=== PATIENT | female | born 1985 | race Hispanic/Latino ===

== ENCOUNTER 2024-02-17 13:23 | Observation (INO) | payer BC, MEDICAID ==
[~2024-02-17] VITALS: Ht 165.1 cm; Wt 105.2 kg
[2024-02-17] MEDS: 0.9%NACL 1000ML 1,000 ML IV ONE (13:42)
[2024-02-17] MEDS: ondanSETRON 4MG INJ IVP ONE (13:42)
[2024-02-17] MEDS: acetaMINOPHEN 325 MG TAB PO ONE (13:43)
[2024-02-17 14:05] LABS: BASOPHILS # (AUTO) 0.13 K/uL (0.00-0.20); BASOPHILS % (AUTO) 0.9 % (0.0-5.0); EOSINOPHILS # (AUTO) 0.25 K/uL (0.00-0.70); EOSINOPHILS % (AUTO) 1.7 % (0.0-8.0); HEMATOCRIT 43.5 % (36-48); LYMPHOCYTES # (AUTO) 2.8 K/uL (1.0-4.8); LYMPHOCYTES % (AUTO) 18.8 % (21.0-51.0); MEAN CORPUSCULAR HEMOGLOBIN 28.6 pg (27.0-33.0); MEAN CORPUSCULAR HGB CONC 33.1 g/dL (32.0-36.0); MEAN CORPUSCULAR VOLUME 86.3 fL (79-99); MONOCYTES # (AUTO) 1.3 K/uL (0.1-1.0); MONOCYTES % (AUTO) 8.5 % (3.0-13.0); NEUTROPHILS # (AUTO) 10.3 K/uL (1.8-7.7); NEUTROPHILS % (AUTO) 69.4 % (40.0-77.0); PLATELET COUNT (AUTO) 384 K/uL (130-400); RED BLOOD CELL COUNT(AUTO) 5.04 MIL/uL (4.00-5.50); RED CELL DISTRIBUTION WIDTH 12.4 % (11.0-15.5); WHITE BLOOD COUNT (AUTO) 14.8 K/uL (4.8-10.8)
--- NOTE | 2024-02-17 14:12 | ERN ---
General Chief Complaint: Abdominal Pain Stated Complaint: ABD PAIN Time Seen by MD: 13:27 Source: patient, family History of Present Illness Initial Comments PATIENT IS A 38-YEAR-OLD FEMALE COMING IN TO BE EVALUATED FOR RIGHT FLANK PAIN. PER PATIENT THE PAIN BEGAN TWO DAYS AGO HAS PROGRESSIVELY GOTTEN WORSE. PATIENT QUANTIFIES THE PAIN AT 10/10 PRESENT ON THE RIGHT LOWER ABDOMINAL REGION AND RIGHT FLANK REGION. Allergies: Coded Allergies: Penicillins (Unverified Allergy, Unknown, 02/17/24) levofloxacin (Unverified Allergy, Unknown, 02/17/24) Past Medical History Past Medical History: Hypertension, IBS Past Surgical History: None ROS Dictation CONSTITUTIONAL: NO CHILLS, NO FEVER, NO WEAKNESS, NO DIAPHORESIS, NO MALAISE. HEAD/FACE: NO SIGNS OF TRAUMA. EENT: NO EYE PAIN, NO BLURRED VISION, NO TEARING, NO DOUBLE VISION, NO EAR PAIN, NO EAR DISCHARGE, NO NOSE PAIN, NO NASAL CONGESTION, NO THROAT PAIN, NO THROAT SWELLING, NO MOUTH PAIN. RESPIRATORY: NO COUGH, NO ORTHOPNEA, NO SOB, NO STRIDOR, NO WHEEZING. CARDIOVASCULAR: NO CHEST PAIN, NO EDEMA, NO PALPITATIONS, NO SYNCOPE. GASTROINTESTINAL/ABDOMINAL: ABDOMINAL PAIN, NO CONSTIPATION, NO DIARRHEA, NO NAUSEA, NO VOMITING. GENITOURINARY: NO ABNORMAL DISCHARGE, NO DYSURIA, NO FREQUENT URINATION, NO HEMATURIA. NO COMPLAINTS OF PAIN IN THE GENITALS. MUSCULOSKELETAL: NO BACK PAIN, NO GOUT, NO JOINT PAIN, NO JOINT SWELLING, NO MUSCLE PAIN, NO MUSCLE STIFFNESS, NO NECK PAIN. INTEGUMENTARY: NO CHANGE IN COLOR, NO CHANGE IN HAIR/NAILS, NO DRYNESS, NO LESION, NO LUMPS, NO RASH. NEUROLOGICAL/PSYCH: NO ANXIETY, NOT DEPRESSED, NO EMOTIONAL PROBLEM, NO HEADACHE, NO NUMBNESS, NO PRE-EXISTING DEFICIT, NO HISTORY OF SEIZURES, NO TREMORS, NO WEAKNESS. HEMATOLOGIC/LYMPHATIC: NOT ANEMIC, NO HISTORY OF BLOOD CLOTS, NO APPARENT BLEEDING, NO BRUISING, GLANDS NOT SWOLLEN. ALL SYSTEMS NEGATIVE, EXCEPT NOTED. Physical Exam Physical Exam Dictation VITAL SIGNS: REVIEWED. GENERAL APPEARANCE: ALERT, ORIENTED X3, NO ACUTE DISTRESS, OBESE. HEAD AND FACE: NON-TRAUMATIC. EYES: PERRL, PINK CONJUNCTIVAS, EYELID NO TRAUMA, ANTERIOR CHAMBER CLEAR. EARS: PINNAS INTACT AND NO SIGNS OF TRAUMA OR ERYTHEMA. EAR CANALS CLEAR AND NO DISCHARGE. TMS NO ERYTHEMA. NOSE: NO DISCHARGE, NO BLEEDING. OROPHARYNX: MOUTH NORMAL, TEETH NO CARIES, TONGUE PINK. PHARYNX CLEAR, NO ERYTHEMA. TONSILS NO EXUDATES, NO ABSCESSES NOTED. MUCOUS MEMBRANE MOIST. NECK: SUPPLE, NON-TENDER, NO THYROMEGALY, NO MASSES, NO JVD, NO BRUITS. BREAST: DEFERRED. CHEST: NO TENDERNESS, NO CREPITUS, NO PARADOXICAL MOVEMENT, NO RETRACTIONS. LUNGS: CLEAR, WELL-VENTILATED, SYMMETRIC, NO RALES, NO WHEEZING, NO RHONCHI, NO STRIDOR, GOOD BREATH SOUNDS BILATERALLY. HEART: REGULAR RATE, REGULAR RHYTHM, NO MURMUR, NO GALLOPS. VASCULAR: NO PERIPHERAL EDEMA. ABDOMEN: SOFT, POSITIVE BOWEL SOUNDS, NONDISTENDED, RIGHT LOWER QUADRANT PAIN REPRODUCIBLE ON PALPATION, RIGHT CVA ANGLE TENDERNESS RECTAL: DEFERRED. GENITAL: DEFERRED. NEUROLOGICAL: NORMAL SPEECH, GROSS MOTOR FUNCTION INTACT, GROSS SENSORY FUNCTION INTACT. MUSCULOSKELETAL: NECK NONTENDER, FULL RANGE OF MOTION, BACK NONTENDER, FULL RANGE OF MOTION. EXTREMITIES: NONTENDER, FULL RANGE OF MOTION. SKIN: COLOR PINK, DRY, NO TURGOR, NO RASH, NO LACERATIONS, NO ABRASIONS, NO CONTUSIONS. LYMPHATICS: DEFERRED. Results Laboratory and Microbiology Lab and Micro Result Laboratory Tests Test 02/17/24 13:53 02/17/24 13:58 02/17/24 15:15 White Blood Count 14.8 K/uL (4.8-10.8) H Red Blood Count 5.04 MIL/uL (4.00-5.50) Hemoglobin 14.4 g/dL (12.0-16.0) Hematocrit 43.5 % (36-48) Mean Corpuscular Volume 86.3 fL (79-99) Mean Corpuscular Hemoglobin 28.6 pg (27.0-33.0) Mean Corpuscular Hemoglobin Concent 33.1 g/dL (32.0-36.0) Red Cell Distribution Width 12.4 % (11.0-15.5) Platelet Count 384 K/uL (130-400) Mean Platelet Volume 9.5 fL (7.5-10.5) Immature Granulocyte % (Auto) 0.7 % (0-1) Neutrophils (%) (Auto) 69.4 % (40.0-77.0) Lymphocytes (%) (Auto) 18.8 % (21.0-51.0) L Monocytes (%) (Auto) 8.5 % (3.0-13.0) Eosinophils (%) (Auto) 1.7 % (0.0-8.0) Basophils (%) (Auto) 0.9 % (0.0-5.0) Neutrophils # (Auto) 10.3 K/uL (1.8-7.7) H Lymphocytes # (Auto) 2.8 K/uL (1.0-4.8) Monocytes # (Auto) 1.3 K/uL (0.1-1.0) H Eosinophils # (Auto) 0.25 K/uL (0.00-0.70) Basophils # (Auto) 0.13 K/uL (0.00-0.20) Absolute Immature Granulocyte (auto 0.10 K/uL (0-1) Nucleated Red Blood Cells 0.0 % (0.0-0.19) Sodium Level 138 mmol/L (136-145) Potassium Level 3.9 mmol/L (3.5-5.1) Chloride Level 102 mmol/L (101-111) Carbon Dioxide Level 29 mmol/L (21-32) Blood Urea Nitrogen 12 mg/dL (7-18) Creatinine 1.0 mg/dL (0.5-1.0) Glomerular Filtration Rate Calc 74 mL/min (>90) Random Glucose 122 mg/dL (70-105) H Total Calcium 8.9 mg/dL (8.5-10.1) Serum Test, Qualitative NEGATIVE (NEGATIVE) Urine Color LIGHT-YELLOW (YELLOW) Urine Appearance CLEAR (CLEAR) Urine pH 7.5 (5.0-8.0) Urine Specific [place] 1.015 (1.001-1.031) Urine Protein NEGATIVE mg/dL (NEGATIVE) Urine Glucose (UA) NEGATIVE mg/dL (NEGATIVE) Urine Ketones NEGATIVE mg/dL (NEGATIVE) Urine Occult Blood NEGATIVE (NEGATIVE) Urine Nitrate NEGATIVE (NEGATIVE) Urine Bilirubin NEGATIVE mg/dL (NEGATIVE) Urine Urobilinogen 0.2 mg/dL (0.2-1.0) Urine Leukocyte Esterase NEGATIVE Demi/uL Urine HCG, Qualitative NEGATIVE (NEGATIVE) MDM MDM: DIFFERENTIAL DIAGNOSIS: Right ovarian cyst, abdominal pain, RATIONALE: TESTS CONSIDERED AND ORDERED SECONDARY TO SHARED DECISION MAKING INCLUDE: PREVIOUS OUTSIDE RECORDS REVIEWED: OLD ER VISITS. RISK OF COMPLICATION AND/OR MORBIDITY OR MORTALITY OF PATIENT MANAGEMENT: NONE MEDICATIONS-PER MEDICATION RECONCILIATION NEED FOR HOSPITALIZATION: PATIENT DOES NOT MEET CRITERIA FOR HOSPITALIZATION. NEED FOR EMERGENCY MAJOR/MINOR SURGERY: NO THERE ARE NO SOCIAL CONCERNS WITH THIS PATIENT. PRESCRIPTION DRUG MANAGEMENT PRESCRIPTIONS WILL INCLUDE SYMPTOMATIC CARE PATIENT'S PRIOR EXTERNAL MEDICAL RECORDS FROM OTHER ER VISITS WERE REVIEWED BY ME INDICATED. PRIOR TESTING AND RESULTS FROM PREVIOUS VISITS WERE REVIEWED. PRIOR TESTS WERE TAKEN INTO ACCOUNT WITH MEDICAL DECISION MAKING AND RESOURCE UTILIZATION, INDEPENDENT HISTORIAN/HISTORIANS WERE USED TO OBTAIN COMPLETE MEDICAL HISTORY. I INDEPENDENTLY INTERPRETED THE TEST THAT WERE PERFORMED, RESULTS WERE REVIEWED BY ME AND CONSIDERED FINDINGS ON RADIOLOGY IF ORDERED. MEDICAL MANAGEMENT AND EXAMINATION INTERPRETATION DISCUSSIONS WERE HAD BY ME WITH OTHER QUALIFIED HEALTHCARE PROFESSIONALS INDICATED FOR THE PATIENT'S CARE. Patient is a 38-year-old female coming in to be evaluated for right flank pain. CT of the abdomen was performed large right ovarian cyst was found 9 cm. Ultrasound pending patient will be transitioned to Dr. Gonsales ED Course Orders Procedure Category Date Status Time Cbc With Differential LAB 02/17/24 Complete 13:36 ,Urine Test LAB 02/17/24 Complete 13:36 Urinalysis Profile LAB 02/17/24 Complete 13:36 0.9%Nacl 1000ml (Ns PHA 02/17/24 Complete 1000ml) 14:00 Acetaminophen 325 Tab PHA 02/17/24 Complete (Tylenol 325mg Tab 14:00 Ondansetron 4mg Inj PHA 02/17/24 Complete (Zofran 4mg Inj) 14:00 Basic Metabolic Panel LAB 02/17/24 Complete 13:36 Testing, LAB 02/17/24 Complete Serum Hcg 15:00 Ct Abdomen/Pelvis W/O CT 02/17/24 Resulted Contrast 16:03 Us Pelvic Non-Ob Comp US 02/17/24 Resulted 16:51 Morphine 2mg Syg PHA 02/17/24 In Process (Morphine 2mg Syg) 20:30 Current Medications Medications (Trade) Dose Ordered Sig/Siomara Route PRN Reason Start Time Stop Time Status Last Admin Dose Admin Acetaminophen (TYLenol 325MG TAB) 650 mg ONCE ONCE PO 02/17/24 14:00 02/17/24 14:01 DC 02/17/24 13:43 Morphine Sulfate (morPHINE 2MG SYG) 2 mg ONCE ONCE IVP 02/17/24 20:30 02/17/24 20:31 Ondansetron HCl (zoFRAN 4MG INJ) 4 mg ONCE ONCE IVP 02/17/24 14:00 02/17/24 14:01 DC 02/17/24 13:42 Sodium Chloride 1,000 ml @ 0 mls/hr ONCE ONCE IV 02/17/24 14:00 02/17/24 14:01 DC 02/17/24 13:42 Vital Signs Date Time Temp Pulse Resp B/P (MAP) Pulse Ox O2 Delivery O2 Flow Rate FiO2 02/17/24 19:43 99.0 75 18 117/80 97 Room Air* 0 21 02/17/24 17:36 98.4 70 18 122/71 98 Room Air* 0 21 02/17/24 16:07 98.4 70 18 142/85 98 Room Air* 0 21 02/17/24 13:40 98.4 69 18 149/89 97 Room Air* 0 21 02/17/24 13:27 98.4 69 18 159/96 98 7:00 p.m. patient was signed out to me by a.m. physician. This is a 38-year-old female obese presented to the emergency room with complaints of severe right lower quadrant abdominal pain. Extensive evaluation done and a CT scan of the abdomen and pelvis was done which showed a large cyst more than 9 cm appears to be originating from the ovary. Ultrasound of the pelvis was also done which showed the large cyst attached to the ovary but adjacent to it. I spoke personally with the soils technician who said that there is good flow to the ovary. 8:00 p.m. updated the patient on available information. I also called JERILYN Cross on-call who recommended admission and overnight pain management. And there was no mention about the flow to the cyst and ovary and I personally discussed with the soils technician who indicated that there was flow to the ovary. Labs reviewed patient does have a leukocytosis of 14.8. No evidence of any appendicitis or bowel abnormality on the CT scan. Called who accepted the patient for admission. Problem List Problem Lists: (1) Right ovarian cyst DX & DISP Disposition: Inpatient Decision to Admit Time: 07:20 Departure Impression: Primary Impression: Right ovarian cyst Additional Impressions: Leukocytosis, Right lower quadrant abdominal pain, Obesity Condition: Stable Additional Instructions: Patient was informed of all the diagnostic labs and procedures conducted in the emergency room today and demonstrated understanding of the results. I personally reviewed and interpreted all the diagnostic exams performed in the ER today. The patient will be admitted to the hospital for further treatment and evaluation. Disposition-admit to facility Condition-stable/guarded Course-uncertain at this time Pain status-decreased Assessment-exam unchanged Admission Certification- I certify that the patients status is appropriate and is based on my best clinical judgment and the patient's condition as documented in the medical records Referrals: SELF,REFERRAL (PCP) SEAN RICHARDS MD Feb 17, 2024 14:12 NICOLÁS GONSALES MD Feb 17, 2024 20:37
[2024-02-17 14:19] LABS: POTASSIUM 3.9 mmol/L (3.5-5.1)
[2024-02-17 15:39] LABS: APPEARANCE,URINE CLEAR (CLEAR); BILIRUBIN,URINE NEGATIVE (NEGATIVE); COLOR,URINE LIGHT-YELLOW (YELLOW); GLUCOSE, URINE (UA) NEGATIVE (NEGATIVE); KETONES,URINE NEGATIVE (NEGATIVE); LEUKOCYTE ESTERASE ,URINE NEGATIVE Leu/uL (NEGATIVE); NITRATE,URINE NEGATIVE (NEGATIVE); OCCULT BLOOD,URINE NEGATIVE (NEGATIVE); PH,URINE 7.5 (5.0-8.0); PROTEIN,URINE NEGATIVE (NEGATIVE); UROBILINOGEN,URINE 0.2 mg/dL (0.2-1.0)
[2024-02-17 15:40] LABS: ADD UA MICROSCOPIC NO
[2024-02-17 15:50] LABS: HCG,QUALITATIVE URINE NEGATIVE (NEGATIVE)
--- NOTE | 2024-02-17 16:44 | HMCIMG ---
CT ABDOMEN/PELVIS W/O CONTRAST CLINICAL HISTORY: RLQ PAIN COMPARISON: None TECHNIQUE: Sequential axial images of abdomen and pelvis without contrast and with sagittal and coronal reconstructions. CT was performed with one or more of the following dose reduction techniques: automated exposure control, adjustment of the mA and/or kV according to patient size, or use of iterative reconstruction technique FINDINGS: The lung bases are clear. There is diffuse fatty infiltration liver. The spleen is unremarkable and gallbladder is surgically absent. The pancreas adrenal glands and kidneys and bladder are unremarkable. Note is made of a 9 cm right ovarian cyst. The uterus is unremarkable. There is no free air or free fluid. There is no bulky abdominal or retroperitoneal lymphadenopathy. There is no identified bowel structure. The bony structures are within normal limits. IMPRESSION: 9 cm right ovarian cyst recommend ultrasound correlation.
--- NOTE | 2024-02-17 19:18 | HMCIMG ---
US PELVIC NON-OB COMP HISTORY: ovarian cyst right COMPARISON: None FINDINGS: The uterus measures 9.7 cm in length and there is a 9 mm endometrial thickness. The ovaries are unremarkable size echogenicity and vascularity. Note is made of a right adnexal 8.7 cm simple appearing cyst. IMPRESSION: Right adnexal 8.7 cm simple appearing cyst.
--- NOTE | 2024-02-17 20:15 | NUR ---
PATIENT AT CT AT THIS TIME.
[2024-02-17] MEDS ORDERED: acetaMINOPHEN 325 MG TAB PO PRN (21:00)
[2024-02-17] MEDS: DEXTROSE 5 % AND 0.9 % NACL 1,000 ML IV SCH (21:00)
[2024-02-17] MEDS ORDERED: ZOSYN 3.375GM +NS 50ML IVPB SCH (21:00)
--- NOTE | 2024-02-17 21:21 | NUR ---
D5NS NOT AVAILABLE IN ER.
--- NOTE | 2024-02-17 21:55 | NUR ---
RECEIVED REPORT FROM NATALIIA MORRIS
[2024-02-17] MEDS ORDERED: LINA145C PO (22:03)
[2024-02-17] MEDS ORDERED: LOSA25TA41 PO (22:03)
[2024-02-17 22:05] VITALS: O2SAT 98
[2024-02-17] MEDS: morPHINE 2 MG SYG IVP ONE (22:06)
--- NOTE | 2024-02-17 22:12 | NUR ---
[facility] PATIENT ALERT AND ORIENTED X 4 IN STABLE CONDITION, STATES HER PAIN IS 2 ON A 0-10 PAIN SCALE, VERBALIZES SHE WANTS TO TAKE SHOWER SINCE SHE'S BEEN IN THE HOSPITAL ALL DAY. ADMISSION ASSESSMENT COMPLETED AND PATIENT THEN PROVIDED WITH [facility]OS[facility]ITAL GOWN AND NON-SLIP SOCKS WELL SOAP AND TOWELS FOR HER SHOWER. SON STAYING OVERNIGHT. CALL RUBIN AND TELEPHONE ON PATIENT'S BED WITHIN REACH.
[2024-02-17 22:15] VITALS: BP 136/85; PULSE 72; RESP 18; TEMP 98.2
[2024-02-17] MEDS: ondanSETRON 4MG INJ IVP PRN (23:45)
[2024-02-17] MEDS: morPHINE 2 MG SYG IVP PRN (23:46)
[2024-02-18 03:08] VITALS: BP 98/63; PULSE 63; RESP 17; TEMP 97.9
[2024-02-18 06:19] LABS: BASOPHILS % (AUTO) 0.8 % (0.0-5.0); EOSINOPHILS # (AUTO) 0.33 K/uL (0.00-0.70); EOSINOPHILS % (AUTO) 2.6 % (0.0-8.0); HEMATOCRIT 40.3 % (36-48); IMMATURE GRANULOCYTE ABSOLUTE 0.09 K/uL (0-1); LYMPHOCYTES # (AUTO) 3.4 K/uL (1.0-4.8); LYMPHOCYTES % (AUTO) 26.5 % (21.0-51.0); MEAN CORPUSCULAR HEMOGLOBIN 28.3 pg (27.0-33.0); MEAN CORPUSCULAR HGB CONC 32.3 g/dL (32.0-36.0); MEAN CORPUSCULAR VOLUME 87.8 fL (79-99); MONOCYTES # (AUTO) 1.2 K/uL (0.1-1.0); MONOCYTES % (AUTO) 9.2 % (3.0-13.0); NEUTROPHILS # (AUTO) 7.6 K/uL (1.8-7.7); NEUTROPHILS % (AUTO) 60.2 % (40.0-77.0); PLATELET COUNT (AUTO) 314 K/uL (130-400); RED BLOOD CELL COUNT(AUTO) 4.59 MIL/uL (4.00-5.50); RED CELL DISTRIBUTION WIDTH 12.6 % (11.0-15.5); WHITE BLOOD COUNT (AUTO) 12.7 K/uL (4.8-10.8)
[2024-02-18 06:32] LABS: CREATININE 0.8 mg/dL (0.5-1.0); MAGNESIUM 1.9 mg/dL (1.80-2.40); POTASSIUM 3.9 mmol/L (3.5-5.1)
[2024-02-18 06:38] LABS: HEMOGLOBIN A1C 5.8 % (4.0-6.0)
[2024-02-18 07:20] VITALS: BP 113/72; PULSE 68; RESP 18; TEMP 98.5
--- NOTE | 2024-02-18 10:05 | NUR ---
CALLED AND SPOKE WITH DR JORDAN TO ASK IF & WHEN HE WILL COME SEE PATIENT. PER MD, STATES HE WILL COME TO SEE PATIENT TODAY, NOT SURE EXACTLY WHAT TIME AT THIS TIME FOR STATES HE IS VERY BUSY TODAY & ALSO HAS A SURGERY TO DO AT NOON, BUT HE WILL BE IN TODAY TO REVIEW AND DISCUSS POC WITH PATIENT. STATES TO ORDER DIET FOR NOW. T.O./READ BACK FOR REGULAR DIET. WENT AND NOTIFIED PATIENT. PATIENT VERBALIZED UNDERSTANDING. Addendum: 02/18/24 at 1134 by CHASTITY LINDA RN RN Amended: Links added.
[2024-02-18 11:49] VITALS: BP 114/71; PULSE 67; RESP 18; TEMP 98
--- NOTE | 2024-02-18 12:15 | NUR ---
DR JORDAN IN ROUNDING, MD REVIEWED PATIENT'S CHART, LABS, VITALS, STATUS, AND RADIOLOGY RESULTS/IMAGES. MD DISCUSSED RESULTS & POC WITH PATIENT. NEW V.O./READ BACK RECEIVED FROM DR JORDAN FOR CA 125 AND PATIENT MAY BE DISCHARGED HOME FROM HIS STANDPOINT AND PATIENT TO FOLLOW UP WITH HIM AT HIS OFFICE TOMORROW OR SUNDAY. PATIENT VERBALIZED UNDERSTANDING, MD ANSWERED ALL HER QUESTIONS/CONCERNS. PATIENT VOICED IN AGREEMENT WITH DR JORDAN'S POC. WILL NOTIFY HOSPITALIST.
--- NOTE | 2024-02-18 12:41 | HP ---
INFECTIOUS DISEASE HISTORY & PHYSICAL NOTE Date of Service: Feb 18, 2024 HISTORY OF PRESENT ILLNESS: This is a 38-year-old pleasant female patient with a past medical history of hypertension and irritable bowel syndrome who presented to the emergency room with chief complaint of right lower quadrant abdominal pain radiating to the flank area. Patient denied experiencing fever or chills. No diarrhea, nausea or vomiting. The WBC however on admission was 14.8. A urinalysis was negative. A CT of the abdomen/pelvis done on admission showed a 9 cm right ovarian cyst which was confirmed with a pelvic ultrasound which showed a right adnexal 8.7 cm cyst. Patient was given Zosyn for the leukocytosis but it has been stopped due to patient reported penicillin allergy. Patient reported that the pain has improved but she still experienced pain to the right lower quadrant abdominal area during palpation. Pain being managed with morphine IV. Patient denied having nausea or vomiting at this time. OBGYN has been consulted and pending an evaluation. REVIEW OF SYSTEMS CONSTITUTIONAL: Denies fever, chills, or fatigue. HEAD/FACE: No signs of trauma. EENT: Denies eye pain, blurred vision, double vision, or light sensitivity. RESPIRATORY: Denies shortness of breath, cough, wheezing CARDIOVASCULAR: Denies chest pain, palpitation, syncope GASTROINTESTINAL/ABDOMINAL: Right lower quadrant abdominal pain radiating to the right flank area, denied constipation, diarrhea, nausea or vomiting. GENITOURINARY: Denies dysuria or hematuria. MUSCULOSKELETAL: Denies joint pain, tenderness, or trauma. INTEGUMENTARY: Denies rash or itchiness. NEUROLOGICAL/PSYCH: Denies anxiety, depression, heat or cold intolerance. PAST MEDICAL HISTORY: Hypertension Irritable bowel syndrome PAST SURGICAL HISTORY: Cholecystectomy. Bilateral carpal tunnel surgery. PAST SOCIAL HISTORY: Denies smoking, the use of alcohol or any other illicit drug. 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 FAMILY HISTORY: Mother has diabetes, hypertension and irritable bowel syndrome. Father who is had diabetes mellitus, hypertension and stroke Coded Allergies: lisinopril (Unverified Allergy, Severe, SHORTNESS OF BREATH, 02/18/24) Penicillins (Unverified Allergy, Unknown, 02/17/24) levofloxacin (Unverified Allergy, Unknown, 02/17/24) PHYSICAL EXAM EYES: Anicteric. Pupils equal and reactive. HENT: No oral thrush seen, moist Oral mucosa. NECK: Supple, no JVD or thyromegaly. LUNGS: Good air entry. No rales, no rhonchi. CARDIOVASCULAR: S1, S2 regular. No murmur heard. ABDOMEN: Soft, non tender, bowel sounds present, no organomegaly. Pain to right lower abdominal quadrant on palpation. CENTRAL NERVOUS SYSTEM: Awake, alert, oriented x 3. SKIN: No rashes, no swelling. LYMPHATICS: No peripheral lymphadenopathy. MUSCULOSKELETAL: No joint swelling, erythema or tenderness. EXTREMITIES: No cyanosis or clubbing. BACK: No deformity, no pressure ulcer. GENITOURINARY: No dysuria or hematuria. Vital Sign (Last 12 Hours) 02/18/24 02/18/24 02/18/24 03:08 07:20 11:49 Temp 97.9 98.4 98.1 Pulse 63 68 67 Resp 17 18 18 B/P (MAP) 98/63 113/72 114/71 Pulse Ox 98 98 97 O2 Delivery Room Air Room Air Room Air LABS: Laboratory: Test 02/18/24 06:09 02/17/24 15:15 02/17/24 13:58 Range/Units White Blood Count 12.7 H 4.8-10.8 K/uL Red Blood Count 4.59 4.00-5.50 MIL/uL Hemoglobin 13.0 12.0-16.0 g/dL Hematocrit 40.3 36-48 % Mean Corpuscular Volume 87.8 79-99 fL Mean Corpuscular Hemoglobin 28.3 27.0-33.0 pg Mean Corpuscular Hemoglobin Concent 32.3 32.0-36.0 g/dL Red Cell Distribution Width 12.6 11.0-15.5 % Platelet Count 314 130-400 K/uL Mean Platelet Volume 9.3 7.5-10.5 fL Immature Granulocyte % (Auto) 0.7 0-1 % Neutrophils (%) (Auto) 60.2 40.0-77.0 % Lymphocytes (%) (Auto) 26.5 21.0-51.0 % Monocytes (%) (Auto) 9.2 3.0-13.0 % Eosinophils (%) (Auto) 2.6 0.0-8.0 % Basophils (%) (Auto) 0.8 0.0-5.0 % Neutrophils # (Auto) 7.6 1.8-7.7 K/uL Lymphocytes # (Auto) 3.4 1.0-4.8 K/uL Monocytes # (Auto) 1.2 H 0.1-1.0 K/uL Eosinophils # (Auto) 0.33 0.00-0.70 K/uL Basophils # (Auto) 0.10 0.00-0.20 K/uL Absolute Immature Granulocyte (auto 0.09 0-1 K/uL Nucleated Red Blood Cells 0.0 0.0-0.19 % Sodium Level 141 136-145 mmol/L Potassium Level 3.9 3.5-5.1 mmol/L Chloride Level 106 101-111 mmol/L Carbon Dioxide Level 29 21-32 mmol/L Blood Urea Nitrogen 9 7-18 mg/dL Creatinine 0.8 0.5-1.0 mg/dL Glomerular Filtration Rate Calc 97 >90 mL/min Random Glucose 109 H 70-105 mg/dL Hemoglobin A1c 5.8 4.0-6.0 % Estimated Average Glucose (eAG) 120 70-126 mg/dL Total Calcium 8.3 L 8.5-10.1 mg/dL Magnesium Level 1.90 1.80-2.40 mg/dL Urine Color LIGHT-YELLOW YELLOW Urine Appearance CLEAR CLEAR Urine pH 7.5 5.0-8.0 Urine Specific [place] 1.015 1.001-1.031 Urine Protein NEGATIVE NEGATIVE mg/dL Urine Glucose (UA) NEGATIVE NEGATIVE mg/dL Urine Ketones NEGATIVE NEGATIVE mg/dL Urine Occult Blood NEGATIVE NEGATIVE Urine Nitrate NEGATIVE NEGATIVE Urine Bilirubin NEGATIVE NEGATIVE mg/dL Urine Urobilinogen 0.2 0.2-1.0 mg/dL Urine Leukocyte Esterase NEGATIVE NEGATIVE Demi/uL Urine HCG, Qualitative NEGATIVE NEGATIVE Serum Test, Qualitative NEGATIVE NEGATIVE Current Medications Medications (Trade) Dose Ordered Sig/Siomara Route PRN Reason Start Time Stop Time Status Last Admin Dose Admin Acetaminophen (TYLenol 325MG TAB) 650 mg Q6H PRN PO MILD PAIN (1-3) 02/17/24 21:00 03/18/24 20:59 Dextrose/Sodium Chloride 1,000 ml @ 75 mls/hr [id number] IV 02/17/24 21:00 03/18/24 20:59 02/18/24 08:10 75 MLS/HR Morphine Sulfate (morPHINE 2MG SYG) 2 mg Q4H PRN IVP SEVERE PAIN (7-10) 02/17/24 21:00 02/24/24 20:59 02/17/24 23:46 2 MG Ondansetron HCl (zoFRAN 4MG INJ) 4 mg Q6H PRN IVP NAUSEA/VOMITING 02/17/24 21:00 03/18/24 20:59 02/17/24 23:45 4 MG Piperacillin Sod/ Tazobactam Sod (Zosyn 3.375gm+NS 50ml) 3.375 gm Q8H IVPB 02/17/24 21:00 02/17/24 21:02 DC DIAGNOSTICS / RADIOLOGY: PATIENT: WILLIAM MATTHEWS MR#: [id number] : 1985 SEX: F AGE: 38 LOCATION: [facility] ORDER 160 STATUS: [facility] ER REPORT#: [id number] SERVICE 160 REASON: RLQ PAIN ORDERING PHYSICIAN: SEAN RICHARDS MD PROCEDURE: ABD PEL WO - CT ABDOMEN/PELVIS W/O CONTRAST CT ABDOMEN/PELVIS W/O CONTRAST CLINICAL HISTORY: RLQ PAIN COMPARISON: None TECHNIQUE: Sequential axial images of abdomen and pelvis without contrast and with sagittal and coronal reconstructions. CT was performed with one or more of the following dose reduction techniques: automated exposure control, adjustment of the mA and/or kV according to patient size, or use of iterative reconstruction technique FINDINGS: The lung bases are clear. There is diffuse fatty infiltration liver. The spleen is unremarkable and gallbladder is surgically absent. The pancreas adrenal glands and kidneys and bladder are unremarkable. Note is made of a 9 cm right ovarian cyst. The uterus is unremarkable. There is no free air or free fluid. There is no bulky abdominal or retroperitoneal lymphadenopathy. There is no identified bowel structure. The bony structures are within normal limits. IMPRESSION: 9 cm right ovarian cyst recommend ultrasound correlation. DICTATED BY: REFUGIO GOMEZ DO DATE: 02/17/24 1641 ASSESSMENT: Abdominal pain. Right ovarian cyst. Leukocytosis. Hypertension. Morbid obesity. PLAN: Started on morphine IV for pain management. Patient was started on D5 NS at 75 mL/hour. Home medications reviewed and reconciled. Pending evaluation by OBGYN. We will monitor electrolytes. Patient has been started on regular diet. This case was reviewed and discussed with my supervising physician and the above assessment and plan was formulated and agreed upon. ATTESTATION BY PHYSICIAN I have seen and examined the patient. I reviewed the documentation, medical decision making, and treatment plan as noted by the mid-level provider above. I agree with the findings and plan of care. PRAMOD CASTILLO MD, [facility] Feb 18, 2024 12:41
--- NOTE | 2024-02-18 13:25 | NUR ---
CALLED AND SPOKE WITH Wesley BRUNER NP FOR DR CASTILLO, NOTIFIED OF DR JORDAN'S VISIT, POC, AND ORDERS. PER Wesley BRUNER NP, SHE WILL NOTIFY DR CASTILLO, STATES DR CASTILLO WILL SEE PATIENT LATER TODAY. STATES POSSIBLY BEFORE 5PM OR MAY BE AFTER 5PM. PENDING DR CASTILLO TO ROUND/ASSESS PATIENT. Addendum: 02/18/24 at 1459 by CHASTITY LINDA RN RN Amended: Links added.
--- NOTE | 2024-02-18 13:45 | NUR ---
NOTIFIED/UPDATED PATIENT ON THE ABOVE NOTE OF CALL TO Wesley BRUNER NP FOR DR CASTILLO. PATIENT VERBALIZED UNDERSTANDING.
[2024-02-18 16:00] VITALS: BP 119/71; PULSE 72; RESP 18; TEMP 98.2
[2024-02-18 16:15] VITALS: BP 135/75; PULSE 79; RESP 18; TEMP 98.6
--- NOTE | 2024-02-18 17:20 | NUR ---
PATIENT CALLED THAT SHE WAS IN PAIN. IN TO ASSESS, PATIENT STATES IS IN A LOT OF PAIN & REQUESTED PAIN MEDICATION. UPON TAKING HER THE MORPHINE ORDERED FOR PAIN SCALE 7-10, PATIENT STATES PAIN AT 5. PATIENT REFUSED MORPHINE, STATES HER PAIN IS NOT THAT BAD YET, WHICH WAS WHEN SHE CAME [facility] PATIENT STATES SHE WANTS TO WAIT TO GET MORPHINE. OFFERED TYLENOL EVEN IF FOR PAIN SCALE 1-3. PATIENT REFUSED. PATIENT STATES SHE WILL CALL ME WHEN SHE WANTS/NEEDS THE MORPHINE. NOTIFIED CHARGE NURSE NATALIIA THOMAS.
--- NOTE | 2024-02-18 17:55 | NUR ---
DR CASTILLO IN TO ROUND ON PATIENT, ASSESSED PATIENT, PATIENT STATUS, DISCUSSED POC WITH PATIENT AND DISCHARGE INSTRUCTION. PATIENT VERBALIZED UNDERSTANDING AND IN AGREEMENT. NEW V.O./READ BACK RECEIVED FROM DR CASTILLO TO DISCHARGE PATIENT HOME AND SHE CAN KEEP F/U APPOINTMENT WITH DR JORDAN AT HIS CLINIC INSTRUCTED BY DR JORDAN AND SCHEDULED FOR TOMORROW. CALLED AND NOTIFIED , STATES WILL NOTIFY Augie ROGERS. Addendum: 02/18/24 at 1804 by CHASTITY LINDA RN RN Amended: Links added.
--- NOTE | 2024-02-18 18:30 | NUR ---
DISCHARGE INSTRUCTIONS DISCHARGE INSTRUCTIONS REVIEWED AND GIVEN TO PATIENT. PATIENT VERBALIZED UNDERSTANDING, NO QUESTIONS OR CONCERNS VOICED. PATIENT INSTRUCTED TO CALL [employer] [facility] WHEN READY TO BE TRANSPORTED VIA WHEELCHAIR TO THEIR PRIVATE VEHICLE.
--- NOTE | 2024-02-18 18:45 | NUR ---
DISCHARGE PATIENT DISCHARGED HOME, TRANSPORTED VIA WHEELCHAIR TO PRIVATE VEHICLE BY OANH JACKSON. PATIENT'S SON AT SIDE AND DRIVING HER HOME.
--- NOTE | 2024-02-19 02:51 | DS ---
DATE OF DISCHARGE: 02/18/2024 DISCHARGE SUMMARY PRESENTING COMPLAINT: Abdominal pain. HOSPITAL COURSE: A 38-year-old female with morbid obesity, who presented to the hospital with abdominal pain. The patient had CT of the abdomen and pelvis which shows right ovarian cyst with possible torsion. The patient was subsequently admitted. The patient had pelvic sonogram done which shows large cyst without evidence of obstruction. The patient has been seen by Gynecology who advised the patient to be discharged for outpatient followup. The pain was controlled with the analgesic. The patient is doing clinically much better. No fever. No chills. No signs of infection. FINAL DISCHARGE DIAGNOSES: * Right ovarian cyst. * Abdominal pain. * Morbid obesity. PLAN: * The patient to be discharged home. * Followup with Dr. Collazo, [facility]cology [facility], in a.m. * Continue analgesic for pain. * Follow up with primary care physician. TID: [id number] RECEIPT: [id number]
[2024-02-19] MEDS ORDERED: (Linaclotide (Linzess) 1 CAP) PO SCH (09:00)
[2024-02-19] MEDS ORDERED: LoSARTan 25 MG TABLET PO SCH (09:00)
== END 2024-02-18 18:45 | disposition home or self-care (01) ==
LOC: EDH 13:23 → INTOOBSV 20:37 → EDHIP 20:37 → WSH 22:19
PROVIDERS: ADMIT Internal Medicine; ATTEND Internal Medicine Infectious Disease
DX: N83.201 Unspecified ovarian cyst, right side (principal); D72.829 Elevated white blood cell count, unspecified; K58.9 Irritable bowel syndrome, unspecified; E66.01 Morbid (severe) obesity due to excess calories; I10 Essential (primary) hypertension; Z88.0 Allergy status to penicillin; Z68.38 Body mass index [BMI] 38.0-38.9, adult; Z79.899 Other long term (current) drug therapy
CPT/HCPCS: 99285; 74176; 96374; 76856; 96361 ×3; 96375; 80048 ×2; 84703; 85025 ×2; 86304; 81003; 81025; 36415 ×2; 96376; 83036; 83735; J2270; J7030; J2405 ×2; G0378; J7042